=== PATIENT | female | born 1975 | race African-American/Black ===

== ENCOUNTER 2023-04-24 15:00 | Emergency (ER) | payer OTHER ==
[~2023-04-24] VITALS: Ht 175.3 cm; Wt 204.1 kg
[2023-04-24] MEDS ORDERED: AMLO5TAB4 PO (15:15)
[2023-04-24] MEDS ORDERED: WARF7.5T49 PO (15:15)
[2023-04-24 15:25] LABS: BASOPHILS # (AUTO) 0.5 K/UL (0.0-0.2); BASOPHILS % (AUTO) 3.8 % (0.0-2.0); EOSINOPHILS # (AUTO) 0.1 K/uL (0.0-0.7); EOSINOPHILS % (AUTO) 0.5 % (0.0-7.0); HEMATOCRIT 38.9 % (31.2-41.9); HEMOGLOBIN 12.9 g/dL (10.9-14.3); LYMPHOCYTES # (AUTO) 0.7 K/uL (0.8-4.8); LYMPHOCYTES % (AUTO) 4.6 % (20.5-51.5); MEAN CORPUSCULAR HEMOGLOBIN 27.3 uug (24.7-32.8); MEAN CORPUSCULAR HGB CONC 33 g/dL (32.3-35.6); MEAN CORPUSCULAR VOLUME 82.6 fL (75.5-95.3); MONOCYTES # (AUTO) 0.4 K/uL (0.1-1.30); MONOCYTES % (AUTO) 2.9 % (0.0-11.0); NEUTROPHILS # (AUTO) 12.7 K/uL (1.8-8.9); NEUTROPHILS % (AUTO) 88.2 % (38.5-71.5); PLATELET COUNT (AUTO) 324 K/uL (179-408); RED BLOOD CELL COUNT(AUTO) 4.71 MIL/uL (3.63-4.92); RED CELL DISTRIBUTION WIDTH 15.9 % (12.3-17.7); WHITE BLOOD COUNT (AUTO) 14.4 K/uL (3.8-11.8)
[2023-04-24] MEDS: IV NORMAL SALINE 1000 ML BAG IV ONE (15:47)
[2023-04-24 15:50] LABS: DIFFERENTIAL COMMENT 1
[2023-04-24 15:54] LABS: *BILIRUBIN,URIN NEGATIVE (NEGATIVE); *CLARITY,URINE CLEAR (CLEAR); *COLOR,URINE YELLOW (YELLOW); *KETONES,URINE 1+ (NEGATIVE); *PROTEIN,URINE NEGATIVE (NEGATIVE); *UROBILINOGEN,URINE 0.2 E.U./dl (NORMAL); LEUKOCYTE ESTERASE ,URINE NEGATIVE (NEGATIVE); NITRITE, URINE NEGATIVE (NEGATIVE); PH,URINE 5.5 (5.0-8.0); UGLUCOSE NEGATIVE (NEGATIVE)
[2023-04-24 15:55] LABS: *BLOOD, URINE TRACE (NEGATIVE)
[2023-04-24 16:10] LABS: CALCIUM 8.7 mg/dL (8.5-10.1); CARBON DIOXIDE 27 mmol/L (21-32); CHLORIDE 99 mmol/L (98-107); CREATININE 0.9 mg/dL (0.6-1.3); GLUCOSE 133 mg/dL (74-106); POTASSIUM 3.6 mmol/L (3.5-5.1); SODIUM SERUM 137 mmol/L (136-145); UREA NITROGEN, BLOOD 13 mg/dL (7-18)
[2023-04-24 16:24] LABS: ALANINE AMINOTRANSFERASE 31 U/L (14-59); ALBUMIN 3.9 g/dL (3.4-5.0); ALKALINE PHOSPHATASE 90 U/L (50-136); ASPARTATE AMINOTRANSFERASE 20 U/L (15-37); BILIRUBIN,DIRECT 0.2 mg/dL (0.0-0.2); BILIRUBIN,TOTAL 0.7 mg/dL (0.2-1.0); TOTAL PROTEIN, SERUM 8.7 g/dL (6.4-8.2)
[2023-04-24 16:31] LABS: *URINE HCG, QUAL NEGATIVE (NEGATIVE)
[2023-04-24 16:51] LABS: WBC,URINE 0-3 /HPF (0-3)
[2023-04-24] MEDS: PIPERACILLIN SODIUM/TAZOBACTAM 3.375 G in IV DEXTROSE 5% 50 ML IV ONE (17:15)
[2023-04-24] MEDS ORDERED: PIPERACILLIN/TAZOBACTAM/D5W 50 ML IV ONE (17:25)
[2023-04-24] MEDS ORDERED: VANCOMYCIN IV 200 ML ONE (17:25)
[2023-04-24] MEDS ORDERED: ACETAMINOPHEN ES 500 MG TABLET ONE (17:25)
[2023-04-24] MEDS: ACETAMINOPHEN 325 MG TABLET PO ONE (17:30)
[2023-04-24] MEDS: VANCOMYCIN IV 1,000 MG in IV DEXTROSE 5% 250 ML IV ONE (17:30)
[2023-04-24 21:50] VITALS: BP 116/57; TEMP 98.6; O2SAT 100
== END 2023-04-24 21:52 | disposition short-term general hospital (02) ==
LOC: ER 15:00
DX: A41.9 Sepsis, unspecified organism (principal); I89.0 Lymphedema, not elsewhere classified; E66.01 Morbid (severe) obesity due to excess calories; Z79.899 Other long term (current) drug therapy; R10.2 Pelvic and perineal pain; Z68.44 Body mass index [BMI] 60.0-69.9, adult; Z20.822 Contact with and (suspected) exposure to COVID-19; Z88.2 Allergy status to sulfonamides
CPT/HCPCS: 99291; 93970; 96365; 71045; 96361; 87426; 87804 ×2; 80076; 80048; 81001; 84703; 83880; 85025; 85730; 87040 ×2; 84484; 36415; 93005; 96368; 83605; 87086; J2543; J3370; J7040; A4606; A4663; A9150